=== PATIENT | female | born 1970 | race Two or more races ===

== ENCOUNTER 2024-09-04 15:36 | Emergency (ER) | payer OTHER ==
[~2024-09-04] VITALS: Ht 162.6 cm; Wt 94.5 kg
[2024-09-04 15:48] VITALS: TEMP 98.5
[2024-09-04] MEDS ORDERED: LINA145C PO (15:53)
[2024-09-04] MEDS ORDERED: SEMA2.4P SQ (19:45)
[2024-09-04] MEDS ORDERED: HYDR15FO PR (19:45)
[2024-09-04] MEDS ORDERED: TERB250T90 PO (19:45)
[2024-09-04] MEDS ORDERED: LISI2.5T13 PO (19:45)
[2024-09-04] MEDS ORDERED: IBUP-1492 PO (19:47)
[2024-09-04] MEDS: IBUPROFEN 600 MG TABLET PO ONE (19:49)
[2024-09-04 20:00] VITALS: BP 133/88; PULSE 72; RESP 16; O2SAT 97
== END 2024-09-04 20:18 | disposition home or self-care (01) ==
LOC: EMS 15:36
DX: S80.01XA Contusion of right knee, initial encounter (principal); S80.02XA Contusion of left knee, initial encounter; M25.532 Pain in left wrist; M25.531 Pain in right wrist; I10 Essential (primary) hypertension; W01.0XXA Fall on same level from slipping, tripping and stumbling without subsequent striking against object, initial encounter; Y93.89 Activity, other specified; Y92.89 Other specified places as the place of occurrence of the external cause; Y99.8 Other external cause status
CPT/HCPCS: 99284; 73110-TC; 73562-TC; Z7502; Z7610